=== PATIENT | female | born 1950 | race Caucasian/White ===

== ENCOUNTER → 2018-11-07 | Outpatient (CLI) | payer MEDICARE ==
--- NOTE | 2018-11-11 09:08 | SLEEPHOME ---
DATE OF STUDY: 11/07/2018 ORDERED BY: PHILLIP Sheffield [facility] home sleep testing was performed due to concern for the obstructive sleep apnea syndrome. For testing, a nocturnal T3 respiratory monitoring device was used. Continuous record was made of pulse, oxygen saturation, airflow, chest and abdominal strain and body position. 9 hours and 59 minutes of data were reviewed. There were 9 hours and 44 minutes marked as time in bed. During the interval marked time in bed, there were 29 respiratory events identified of 10 seconds in duration or greater for a respiratory event index of 3. The events were primarily obstructive and primarily associated with supine posture. Baseline pulse rate was 55 beats per minute, pulse rate ranged 48-77. Baseline saturation 92%, saturations did dip to 85%. Testing was performed in both the supine and nonsupine positions. IMPRESSION: Abnormal home sleep testing with repetitive respiratory events and oxygen desaturations to 85% with a respiratory event index of 3 is suggestive of the pattern seen in patients with obstructive sleep apnea syndrome. RECOMMENDATION: As the patient's respiratory events were associated with the supine posture, sleep position retraining for avoidance of the supine posture may be helpful. If sleep symptoms are persistent, referral for formal sleep evaluation would be appropriate.
== END ==
LOC: M SLEEP HO 10:05
PROVIDERS: ATTEND Nurse Practitioner Family
DX: R06.83 Snoring (principal)

== ENCOUNTER → 2024-08-25 | Outpatient (CLI) | payer MEDICARE | LOC: M CARPUL 09:32 | PROVIDERS: ATTEND Registered Nurse | DX: R94.31 Abnormal electrocardiogram [ECG] [EKG] (principal) ==